=== PATIENT | male | born 1960 | race African-American/Black ===

== ENCOUNTER 2025-02-18 20:29 | Emergency (ER) | payer MEDICARE, MEDICAID, SELFPAY ==
--- OUTSIDE RECORDS SUMMARY | 2025-02-17 23:59 | XMS_ITS | Continuity of Care Document ---
Author Organization [facility] Address [address] [place] [id number] Care Team Providers Care Team Coordinator Name Role Phone Sy ROWLAND, Kristin Primary Care Physician Encounter [facility] [place] Date(s): 01/18/25 - 02/17/[address] [id number]- Encounter Type: Triage Allergies, Adverse Reactions, Alerts No Known Allergies Immunizations Given and Recorded Vaccine Date Status Refusal Reason [id number] 12y+ bivalent booster vax 04/08/23 Given influenza virus vaccine, inactivated 04/08/23 Give n influenza virus vaccine, inactivated 04/10/22 Give n influenza virus vaccine, inactivated 02/12/17 Fly rded influenza virus vaccine, inactivated 02/04/15 Give n influenza virus vaccine, inactivated 01/31/14 Fly rded influenza virus vaccine, inactivated 12/01/12 Fly rded influenza virus vaccine, inactivated 1 12/26/10 Gi jimy SARS-CoV-2 (COVID-19) mRNA BNT-162b2 vac 04/29/21 Given SARS-CoV-2 (COVID-19) mRNA BNT-162b2 vac 08/03/20 Given SARS-CoV-2 (COVID-19) mRNA BNT-162b2 vac 2 07/13/20 Given Influenza Vaccine (oldterm) 3 01/06/12 Given tetanus-diphtheria toxoids (Td) 4 05/20/09 Given 1Admin Note: vis 10/2010 2Result Comment: Steph Reaves 3Admin Note: VIS GIVEN 4Admin Note: vis 02/14/2008 Medications Aspirin Low Dose 81 mg oral delayed release tablet 1 tablet, By Mouth, Daily, # 90 tablet, 1 Refills, Maintenance, 12/01/24 4:56:00 PM EDT, [id number], 172.72, cm, 06/29/24 11:28:00 EDT, Height, 79.5, kg, 01/25/24 15:04:00 EDT, Dry Weight Start Date: 12/01/24 Status: Ordered Medication Dispense Status: Completed Quantity: 90.0 Unit: tablet Total Allowed Fills: 1 Fills Dispensed: 0 atorvastatin 80 mg oral tablet 1 tablet, By Mouth, Daily at bedtime, # 90 tablet, 3 Refills, 04/05/24 12:20:00 PM EST, [facility]/pharmacy #[id number], 172.72, cm, 01/29/24 4:24:00 EDT, Height, 79.5, kg, 01/25/24 15:04:00 EDT, Dry Weight Start Date: 04/05/24 Status: Ordered Medication Dispense Status: Completed Quantity: 90.0 Unit: tablet Total Allowed Fills: 4 Fills Dispensed: 0 BuPROPion (Eqv-Wellbutrin SR) 150 mg/12 hours oral tablet, extended release 1 tablet, By Mouth, 2 times a day, # 180 tablet, 1 Refills, Maintenance, 04/06/24 6:32:00 PM EST, [facility]/pharmacy #[id number], 172.72, cm, 01/29/24 4:24:00 EDT, Height, 79.5, kg, 01/25/24 15:04:00 EDT, Dry Weight Start Date: 04/06/24 Status: Ordered Medication Dispense Status: Completed Quantity: 180.0 Unit: tablet Total Allowed Fills: 2 Fills Dispensed: 0 capsaicin 0.025% topical cream 1 application, Topically, 3 times a day, PRN Pain , Moderate, # 60 Gm, 3 Refills, Maintenance, 04/08/23 9:13:00 AM EST, [facility] #[id number], Partial fill upon patient request if the prescription is for a schedule II opioid drug., 1 application Topically 3 times a day,PRN:Pain , Moderate, 173, cm, 04/08/23 8:27:00 EST, Height Start Date: 04/08/23 Status: Ordered Medication Dispense Status: Completed Quantity: 60.0 Unit: g Total Allowed Fills: 4 Fills Dispensed: 0 Indications: Unilateral primary osteoarthritis, unspecified hip; loratadine 10 mg oral tablet 10 mg, 1, tablet, By Mouth, Daily, Seasonal Allergies, # 30 tablet, Refills 1, Tot. Refills 1, Maintenance, 06/29/24 12:19:00 PM EDT, Route to Pharmacy Electronically, [facility]/pharmacy #[id number], Partial fill upon patient request if the prescription is for a schedule II opioid drug., 172.72, cm, 06/29/24 11:28:00 EDT, Height, 79.5, kg, 01/25/24 15:04:00 EDT, Dry Weight Start Date: 06/29/24 Status: Ordered Medication Dispense Status: Completed Quantity: 30.0 Unit: tablet Total Allowed Fills: 2 Fills Dispensed: 0 Methadone = 120 mg, Rx'd [facility], 0 Refills, Maintenance, 05/01/23 5:49:00 AM EST, Partial fill upon patientrequest if the prescription is for a schedule II opioid drug. Start Date: 05/01/23 Status: Ordered Medication Dispense Status: Completed Total Allowed Fills: 1 Fills Dispensed: 0 metoprolol 50 mg oral tablet, extended release 50 mg, 1, tablet, By Mouth, Daily, # 90 tablet, Refills 3, Tot. Refills 3, Maintenance, 04/05/24 12:20:00 PM EST, Route to Pharmacy Electronically, [facility]/pharmacy #[id number], pt needs labs, 172.72, cm, 01/29/24 4:24:00 EDT, Height, 79.5, kg, 01/25/24 15:04:00 EDT, Dry Weight Start Date: 04/05/24 Stop Date: 03/31/25 Status: Ordered Medication Dispense Status: Completed Quantity: 90.0 Unit: tablet Total Allowed Fills: 4 Fills Dispensed: 0 nitroglycerin 0.4 mg sublingual tablet 1 tablet = 0.4 mg, Sublingual, Every 5 minutes, PRN as needed for chest pain, not to exceed 3 doses/15 min--if pain persists, seek medical attention, # 25 tablet, 1 Refills, Maintenance, 06/29/24 12:16:00 PM EDT, Tablet, [facility] #[id number], Partial fill upon patient request if the prescription is fora schedule II opioid drug., 172.72, cm, 06/29/24 11:28:00 EDT, Height, 79.5, kg, 01/25/24 15:04:00 EDT, Dry Weight Start Date: 06/29/24 Status: Ordered Medication Dispense Status: Completed Quantity: 25.0 Unit: tablet Total Allowed Fills: 2 Fills Dispensed: 0 pregabalin 75 mg oral capsule 1 capsule = 75 mg, By Mouth, 2 times a day, # 60 capsule, 1 Refills, Maintenance, 06/29/24 12:25:00 PM EDT, Capsule, [id number], Partial fill upon patient request if the prescription is for a schedule II opioid drug., 172.72, cm, 06/29/24 11:28:00 EDT, Height, 79.5, kg, 01/25/24 15:04:00 EDT,Dry Weight Start Date: 06/29/24 Status: Ordered Medication Dispense Status: Completed Quantity: 60.0 Unit: capsule Total Allowed Fills: 2 Fills Dispensed: 0 Problem List Condition Confirmation Course Effective Dates Status H ealth Status Informant Coronary artery disease (NSTEMI & s/p SERVANDO, 2012) Confirmed Active Depression Confirmed Active Hearing impairment Confirmed Active Hypertension Confirmed Active Chronic pain of both knees Confirmed Active Opioid use disorder (On MAT w/Methadone, [facility]) Confirmed Active Severe osteoarthritis of right hip Confirmed Active [facility] Daryn Liban [phone] Confirmed Active Emphysema lung Confirmed Active Social History Social History Type Response Sexual Sexually involved in last 6 months: No. Smoking Status Current every day sm oker; Type: Cigarettes; Tobacco use times per day: 14 a day; entered on: 12/28/13 Sex Sex Representation Male (finding) Patient Care team information Care Team Personnel Name: Kathryn Leary Position: Reference Physician Member Role: Primary Care Nurse Address: [address] [place] [address] Telecom: Name: Mary Frederick RN Position: S RN Member Role: Primary Care Nurse Name: Radha Lazo RN Position: [facility] W/ Fritz Member Role: Primary Care Nurse Name: Jill Walters RN Position: S RN Member Role: Primary Care Nurse Name: Kristin Dan MD Position: [facility] Physician - Primary Care Member Role: PCP Address: [address] [place] [address] Telecom: Name: Loan Handy RN Position: [facility] RN Member Role: Primary Care Nurse Name: Blanca Moody RN Position: [facility] RN Member Role: Primary Care Nurse Name: Jill Morrissey RN Position: [facility] RN Member Role: Primary Care Nurse Care Team Related Persons Name: URBANO PEDROZA Name: ANAM ELLIS Name: SHAAN ELLIS Insurance Providers Guarantor name: [facility] Information #: 1 Payer: MEDICARE B Payer Identifier: NA Member Number: [id number] Group Number: Subscriber Identifier: NA Relationship to Subscriber: self Coverage Type: NA Coverage Verification Date: NA Telecom: NA Address: Health Plan Information #: 2 Payer: [employer] Payer Identifier: NA Member Number: [id number] Group Number: Subscriber Identifier: NA Relationship to Subscriber: self Coverage Type: MEDICAID Coverage Verification Date: NA Telecom: NA Address:
--- NOTE | ~2025-02-18 | XR_ITS ---
CLINICAL HISTORY: pain, swelling 3 view left foot Comparison: None provided Findings: Bones intact. No dislocations. No significant arthritic change or erosions. No ankle effusion. No radiopaque foreign body. IMPRESSION: 1. No acute findings. This document has been electronically signed by: Marge Hanson MD on 02/18/2025 21:39:58
--- NOTE | ~2025-02-18 | XR_ITS ---
CLINICAL HISTORY: pain, swelling 3 view left ankle Comparison: None provided Findings: No acute fractures. Ankle mortise intact. No significant arthritic change or erosions. No ankle effusion. Mild atherosclerotic vascular disease. IMPRESSION: 1. No acute findings. This document has been electronically signed by: Marge Hanson MD on 02/18/2025 21:38:35
--- NOTE | 2025-02-18 20:37 | ED.GENADULT ---
HPI - General Adult General Chief complaint: Skin/Abscess/Foreign Body Stated complaint: left foot infection Time Seen by Provider: 02/18/25 21:32 Source: patient, RN notes reviewed and old records reviewed Mode of arrival: ambulatory Limitations: no limitations History of Present Illness ED Provider: Nina HPI narrative: 64-year-old male with a past medical history significant for eczema presents for evaluation of left ankle pain and swelling. Patient reports redness, dry skin to the front in his left ankle on top of his foot for about 1 month. He reports that he has a eczema and was scratching himself with a cane when his symptoms initially started He reports that there is some clear drainage from the area. The patient states that he has been treating his wounds by jumping hydrogen peroxide every day for the last month He denies any fevers or chills No calf pain or swelling Related Data Previous Rx's ?Medication ?Instructions ?Recorded cephalexin 500 mg capsule 500 mg PO QID 10 days #40 caps 02/18/25 doxycycline hyclate 100 mg tablet 100 mg PO BID #20 tabs 02/18/25 Allergies Allergy/AdvReac Type Severity Reaction Status Date / Time No Known Allergies Allergy Verified 02/18/25 20:41 Review of Systems Constitutional: Constitutional: Denies body ache(s), Denies chills, Denies fever(s) and Denies frequent falls Eyes: Eyes: Denies blurry vision Integumentary/Breasts: Skin/Breast: Reports pruritus, Reports erythema, Reports rash and Reports wounds Neurologic: Denies frequent falls Psychiatric: Psychiatric: Denies anxiety PMFSH Social History Social History Advance Directives: No Advance Directives Information Provided: No Physical Exam ED Vital Signs: Vital Signs - 24 hr 02/18/25 20:39 Temperature 98.3 F Pulse Rate 103 H Respiratory Rate 20 Blood Pressure 158/96 H Pulse Oximetry 95 Oxygen Delivery Method Room Air BMI result Body Mass Index 26.6 Const General: healthy appearing, comfortable, no acute distress, alert and awake Nutritional Appearance: well nourished Orientation/consciousness: patient oriented x3 HENMT Head: Yes normocephalic and Yes atraumatic Eyes Eyelids: Yes eyelids normal Conjunctivae: conjunctivae normal Sclerae: sclerae normal Corneas: corneas normal Pupils: Equal, round and reactive pupils present EOM: EOMs intact bilaterally Neck Neck: Yes full ROM Resp Effort & Inspection: normal respiratory effort, able to speak in complete sentences and not labored Skin Other: Patient has a large area of dry, cracked skin to the top of his foot and anterior left lower sarkar. There is some erythema, no purulence but there is some serous drainage. No pitting edema General skin exam: elasticity normal Neuro General: patient oriented x3 Cranial nerves: Yes Equal, round and reactive pupils present and Yes Bilaterally intact EOM present Cognition (Neuro): normal cognition Extrem Other: Moving all extremities well without any obvious deformities Course Course Course Narrative: Rapid medical examination performed in triage by Martha Shelby PA-C: Patient is a 64 year old assigned male at presenting to the emergency department with left lower leg pain and redness. Patient states that for several weeks he has been scratching his left lower leg and he believes it may be infected now. Detailed physical exam and review of systems are deferred to the varsity baseball coach. Labs ordered. Patient placed back in the waiting room pending room availability and results. Medical Decision Making Medical Decision Making [facility] Narrative: 64-year-old male presents for evaluation of redness to his left foot and sarkar. This looks as if it started as a simple eczema. The patient has been scratching it and dosing it and hydrogen peroxide. He appears to have a mild cellulitis over the area now. He has no leukocytosis, he has a very slightly elevated ESR and CRP which could be due to his history of eczema or a mild cellulitis. We will treat with cephalexin and doxycycline for 10 days. I asked him to avoid using alcohol or hydrogen peroxide in the area. He may use a barrier cream such as Vaseline. Once he completes the antibiotic course that has seemed to follow up with his primary doctor as he may then pursue treatment for eczema Differential Diagnosis Differential Diagnoses: The differential diagnosis associated with the presentation includes Cellulitis Dermatitis Eczema Acute rash Lab Data [facility] Lab Attestation statement: I reviewed the patient's lab results. No leukocytosis or significant anemia. Normal platelet count. No electrolyte abnormalities warranting dimension. Slight elevation of ESR and CRP as discussed above. 02/18/25 21:07 02/18/25 21:07 Labs: Lab Results 02/18/25 Range/Units 21:07 WBC 6.1 (4.8-10.8) X10*3/uL RBC 4.47 L (4.60-5.80) X10*6/uL Hgb 13.8 L (14.0-18.0) g/dl Hct 41.9 L (42.0-52.0) % MCV 93.7 (80.0-98.0) fL MCH 30.9 (27.0-33.0) pg MCHC 32.9 (31.0-36.0) g/dl RDW 13.4 (11.0-16.0) % Plt Count 209 (160-400) X10*3/uL MPV 9.1 L (9.4-12.4) fL Immature Gran % (Auto) 0.3 (0.0-0.4) % Neut % (Auto) 70.1 (45-73) % Lymph % (Auto) 20.0 (20-40) % Sawyer % (Auto) 7.0 (2-11) % Eos % (Auto) 1.6 (0-4) % Baso % (Auto) 1.0 (0-2) % Lymph # (Auto) 1.2 (1.2-4.9) X10*3/uL Sawyer # (Auto) 0.4 (0.1-1.2) X10*3/uL Eos # (Auto) 0.1 (0.0-0.4) X10*3/uL Baso # (Auto) 0.1 (0.0-0.2) X10*3/uL Abs Immat Gran (auto) 0.02 (0.00-0.03) X10*3/uL Absolute Neuts (auto) 4.3 (2.0-8.3) x10*3/uL Absolute Nucleated RBC 0.000 (0.0-0.012) X10*3/uL Nucleated RBC % (auto) 0.0 (0.0-0.2) /100WBC ESR 25 H (0-15) MM/HR Sodium 144 (135-145) mmol/L Potassium 4.3 (3.3-5.1) mmol/L Chloride 108 (96-108) mmol/L Carbon Dioxide 25 (22-29) mmol/L Anion Gap 15 (12-20) BUN 13 (9-16) mg/dL Creatinine 1.48 H (0.5-1.4) mg/dL Estim Creat Clear Calc 47.5 Estimated GFR 48 Random Glucose 78 (60-115) mg/dL Calcium 9.3 (8.4-10.2) mg/dL Total Bilirubin 0.6 (0.0-1.0) mg/dL AST 36 (5-37) U/L ALT 8 (0-40) U/L Alkaline Phosphatase 153 H (39-117) U/L C-Reactive Protein 1.64 H (< or = 0.50) mg/dL Total Protein 7.7 (6.5-8.0) g/dL Albumin 4.0 (3.5-5.0) g/dL Radiology Impression Discussion of test interpretation with radiology: I have reviewed the radiologist's reading. Radiologist Impression: Findings: Bones intact. No dislocations. No significant arthritic change or erosions. No ankle effusion. No radiopaque foreign body. IMPRESSION: 1. No acute findings. This document has been electronically signed by: Marge Hanson MD on 02/18/2025 21:39:58 Findings: No acute fractures. Ankle mortise intact. No significant arthritic change or erosions. No ankle effusion. Mild atherosclerotic vascular disease. IMPRESSION: 1. No acute findings. This document has been electronically signed by: Marge Hanson MD on 02/18/2025 21:38:35 Discharge Plan Discharge Clinical Impression: Cellulitis Patient Disposition: Home, Self-Care Instructions: Cellulitis (ED) Additional Instructions: Your blood work today was reassuring. This looks like it started as eczema in you may now have a superimposed infection. Take both antibiotics as prescribed for 10 days. When she completely antibiotics, I recommend following up with your primary doctor as you may require additional eczema treatment Avoid using alcohol or hydrogen peroxide on the area as this will continue to dry out the skin Return for new or worsening symptoms Prescriptions: New cephalexin 500 mg capsule 500 mg PO QID 10 Days Qty: 40 0RF doxycycline hyclate 100 mg tablet 100 mg PO BID Qty: 20 0RF Print Language: Tamazight
[2025-02-18 20:39] VITALS: BP 158/96; PULSE 103; RESP 20; TEMP 36.8; O2SAT 95; BMI 26.6
[2025-02-18 21:12] LABS: Hematocrit 41.9 % (42.0-52.0); Hemoglobin 13.8 g/dl (14.0-18.0); Imm Gran Abs Auto 0.02 X10*3/uL (0.00-0.03); Imm Gran Pct Auto 0.3 % (0.0-0.4); Lymphocytes Absolute Auto 1.2 X10*3/uL (1.2-4.9); MANUAL DIFF FLAG NO; Mean Corpuscular HGB Conc 32.9 g/dl (31.0-36.0); Mean Corpuscular Hemoglobin 30.9 pg (27.0-33.0); Mean Corpuscular Volume 93.7 fL (80.0-98.0); NRBC Abs Auto 0.000 X10*3/uL (0.0-0.012); NRBC Pct Auto 0.0 /100WBC (0.0-0.2); Platelet Count 209 X10*3/uL (160-400); Red Blood Count 4.47 X10*6/uL (4.60-5.80); White Blood Count 6.1 X10*3/uL (4.8-10.8)
[2025-02-18 21:28] LABS: Alanine Aminotransferase 8 U/L (0-40); Albumin Level 4.0 g/dL (3.5-5.0); Alkaline Phosphatase 153 U/L (39-117); Anion Gap 15 (12-20); Aspartate Amino Transferase 36 U/L (5-37); Blood Urea Nitrogen 13 mg/dL (9-16); Calcium 9.3 mg/dL (8.4-10.2); Carbon Dioxide 25 mmol/L (22-29); Chloride 108 mmol/L (96-108); Creatinine Clr Calc Pharmacy 47.5; Estimated Glomerular Filt Rate 48; Potassium 4.3 mmol/L (3.3-5.1); Sodium 144 mmol/L (135-145); Total Protein 7.7 g/dL (6.5-8.0)
[2025-02-18 22:16] LABS: Erythrocyte Sedimentation Rate 25 MM/HR (0-15)
[2025-02-18 22:53] VITALS: BP 137/77; PULSE 76; RESP 16; TEMP 36.6; O2SAT 95
[2025-02-18 22:58] VITALS: BP 137/77; PULSE 76; RESP 16; TEMP 36.6; O2SAT 95
== END 2025-02-18 23:00 | disposition home or self-care (01) ==
PROVIDERS: Physician Assistant Medical; Emergency Provider Emergency Medicine
DX: L03.116 Cellulitis of left lower limb (principal); M25.572 Pain in left ankle and joints of left foot; Z79.899 Other long term (current) drug therapy
CPT/HCPCS: 36415; 73610; 73630; 80053; 85025; 85652; 86140; 99283

== ENCOUNTER → 2025-02-18 20:41 | Outpatient (BNV) | payer MEDICARE, MEDICAID, SELFPAY | PROVIDERS: Visit Provider Specialist | DX: R22.42 Localized swelling, mass and lump, left lower limb (principal) | CPT/HCPCS: 73610; 73630 ==

== ENCOUNTER 2025-03-15 18:37 | Emergency (ER) | payer MEDICARE, MEDICAID, SELFPAY ==
--- NOTE | ~2025-03-15 | CT_ITS ---
CLINICAL HISTORY: Wound; r o Deep Space Infection or Osteo --- Additional Notes or Special Instructions: Mid Tibia through Toes Please CT left ankle with contrast Comparison: CR - XR ANKLE LT MIN 3V - 03/15/25 19:48 EST Findings: Ankle predominant skin thickening and subcutaneous edema. No organized fluid collection. No soft tissue gas. Dorsalis pedis arterial atherosclerosis. No unexpected radiopaque foreign body. No focal cortical erosion or acute periosteal reaction to suggest acute osteomyelitis. No acute fracture. No dislocation. Joint spaces are maintained. IMPRESSION: Skin thickening and subcutaneous edema, which can be seen with cellulitis in the appropriate clinical setting. No abscess, soft tissue gas, or evidence of osteomyelitis. This document has been electronically signed by: Leo Bauman MD on 03/16/2025 02:51:08
--- NOTE | ~2025-03-15 | XR_ITS ---
CLINICAL HISTORY: pain, ?infection 3 view left ankle Comparison: CR - XR ANKLE LT MIN 3V - 02/18/25 20:56 EST Findings: No acute fractures or dislocations. No significant loss of joint space, osteophytes, or erosions. No ankle effusion. No radiopaque foreign body. IMPRESSION: 1. No acute findings. This document has been electronically signed by: Donte Cui MD on 03/15/2025 20:09:01
--- NOTE | ~2025-03-15 | XR_ITS ---
CLINICAL HISTORY: pain, ?infection 3 view left foot Comparison: CR - XR FOOT LT MIN 3V - 02/18/25 20:57 EST Findings: Bones intact. No dislocations. No significant arthritic change or erosions. No ankle effusion. No radiopaque foreign body. Small calcaneal spur. IMPRESSION: 1. No acute findings. This document has been electronically signed by: Donte Cui MD on 03/15/2025 20:02:59
[2025-03-15 19:17] VITALS: BP 137/83; PULSE 87; RESP 20; TEMP 36.8; O2SAT 97; BMI 27.8
--- NOTE | 2025-03-15 19:19 | ED_ITS ---
HPI - Skin/Abscess/Foreign Bdy General Chief complaint: Skin/Abscess/Foreign Body Stated complaint: left foot pain Time Seen by Provider: 03/15/25 22:44 Source: patient Mode of arrival: ambulatory Limitations: no limitations History of Present Illness ED Provider: Luis Antonio HOLBROOK HPI narrative: The patient is a 64-year-old male who presents to the Emergency Department for re-evaluation of a rash on the dorsum of his left foot that has been progressively worsening despite completing a course of oral Keflex and doxycycline prescribed during a prior ED visit in late January (02/18). The patient attributes the onset of the problem to scratching his foot with his cane which caused skin tearing, after which he repeatedly poured peroxide on the area. He has had no formal wound care at home. Patient states he saw his primary care physician earlier today for re-evaluation of the wound, advises this was his PCPs 1st time seeing the rash. Patient reports PCP instructed him to return to the hospital for IV antibiotics. Patient denies associated fever/chills, nausea, vomiting, or other systemic complaint. Related Data Previous Rx's ?Medication ?Instructions ?Recorded cephalexin 500 mg capsule 500 mg PO QID 10 days #40 ca ps 02/18/25 doxycycline hyclate 100 mg tablet 100 mg PO BID #20 ta bs 02/18/25 clotrimazole 1 % topical cream 1 appl topical BID 4 we eks #30 03/16/25 grams Allergies Allergy/AdvReac Type Severity Reaction Status Date / Time No Known Allergies Allergy Verified 03/15/25 19:21 Review of Systems 2 Review of Systems: Yes all other systems are reviewed and are negative PMFSH Social History Social History Advance Directives: No Advance Directives Information Provided: Yes Physical Exam 2 Vital Signs: Vital Signs: Last Vital Signs Temp 98.2 F 03/16/25 02:06 Pulse 68 03/16/25 02:06 Resp 18 03/16/25 02:06 BP 168/84 H 03/16/25 02:06 Pulse Ox 97 03/16/25 02:06 O2 Del Method Room Air 03/16/25 02:06 BMI result Body Mass Index 27.8 CONSTITUTIONAL: The patient appears non-toxic, well nourished and in no acute distress. Vital signs as documented. HEAD: Atraumatic, normocephalic. EYES: EOMs grossly intact, pupils equal, conjunctiva clear, no exudate. ENT: Nares patent, no discharge. Airway patent, no audible stridor, visible mucosa is pink and moist without noted lesions. NECK: trachea is midline, no obvious masses or gross abnormalities. CHEST: Symmetric movement, normal appearance. LUNGS: Non-labored work of breathing. CARDIAC: No evidence of hypoperfusion. ABDOMEN: Nondistended, no obvious injury. : Deferred. EXTREMITIES: Moves all extremities spontaneously without reported pain. No obvious injury or deformity noted. NEURO: Alert and oriented x3, CN II-XII appear grossly intact. Cerebellar Functioning grossly intact. Speech clear and appropriate. SKIN: See picture, otherwise warm, dry, color appropriate. No other rashes or lesions noted. Course Course Course Narrative: This is an RME: Additional HPI, ROS, PE not included below will be deferred to primary provider. RME assessment and note performed by: Shanta Loyola PA-C This is a [id number], with a hx of HLD, cardiac stent, and HTN, who presents to the ER with complaints of left foot pain/redness. Pt is concerned for a foot infection, was seen here on 02/18 for same - d/c on doxy/cephalexin. Sxs only worsening - was seen at PCP was told to come in for IV abx. Unable to visualize in triage. Plan: Labs, xrays, further ER eval needed Medications Administered Discontinued Medications Generic Name Dose Route Start Last Admin Trade Name Freq PRN Reason Stop Dose Admin Clotrimazole 1 appl 03/15/25 23:56 03/16/25 01:28 Clotrimazole 1 % Cream 15 Gm Tube TOPICAL 03/15/25 23:57 Not Given ONCE ONE Protocol Sodium Chloride 1,000 mls @ 999 mls/hr 03/15/25 23:45 03/16/25 01:38 Ns IV 03/16/25 00:45 999 mls/hr .Q1H1M PEGGY Administration Iohexol 85 ml 03/16/25 01:48 03/16/25 01:49 Iohexol 350 Mg/Ml 100 Ml Infus..Btl IV 03/16/25 01:49 85 ml ONCE ONE Administration Medical Decision Making Medical Decision Making MDM Narrative: 11:24 PM 03/15/2025 (Santiago HOLBROOK): The patient is a 64-year-old male who presents to the Emergency Department for re-evaluation of a rash on the dorsum of his left foot that has been progressively worsening despite completing a course of oral Keflex and doxycycline prescribed during a prior ED visit in late January (02/18). The patient attributes the onset of the problem to scratching his foot with his cane which caused skin tearing, after which he repeatedly poured peroxide on the area. He has had no formal wound care at home. Patient states he saw his primary care physician earlier today for re-evaluation of the wound, advises this was his PCPs 1st time seeing the rash. Patient reports PCP instructed him to return to the hospital for IV antibiotics. Patient denies associated fever/chills, nausea, vomiting, or other systemic complaint. The patient's exam reveals highly keratinized skin with significant cracking. The rash appears more consistent with an initial fungal infection with subsequent overlying cellulitis. The patient's laboratory evaluation is reassuring, no leukocytosis, anemia, electrolyte abnormality, or significant change in renal function. Lactic acid normal at 1.9. The patient's CRP is elevated at 1.21, ESR 44. Foot and ankle x-ray show no abnormalities. The patient's vital signs are reassuring, no tachycardia or fever. The patient's presentation is more consistent with fungal nonhealing rash, as opposed to failure of outpatient antibiotics. We will treat with topical clotrimazole, however due to the patient's elevated ESR and CRP, we will obtain CT of the lower extremity to evaluate for underlying cellulitis. If CT shows no evidence of underlying cellulitis the patient will be held for case management consultation to establish in home [facility] wound care. 3:32 AM 03/16/2025 (Santiago HOLBROOK): Patient's CT has resulted and shows predominant skin thickening with subcutaneous edema but without organized fluid collection soft tissue gas, or foreign body, there was also no cortical erosion or other periosteal reaction to suggest acute osteomyelitis. At this time there does not appear to be any reason to admit the patient or initiate IV antibiotics. Patient's case was discussed with attending physician Dr. Glover who agrees the rash appears chronic and does not require admission or continued observation. The patient will be discharged with clotrimazole cream, and instructions to follow up with PCP for consideration of wound care referral for scraping/additional management. Lab Data 03/15/25 20:49 03/15/25 20:50 Labs: Lab Results 03/15/25 03/15/25 Range/Units 20:49 20:50 WBC 7.1 (4.8-10.8) X10*3/uL RBC 4.67 (4.60-5.80) X10*6/uL Hgb 14.7 (14.0-18.0) g/dl Hct 45.1 (42.0-52.0) % MCV 96.6 (80.0-98.0) fL MCH 31.5 (27.0-33.0) pg MCHC 32.6 (31.0-36.0) g/dl RDW 14.2 (11.0-16.0) % Plt Count 200 (160-400) X10*3/uL MPV 9.4 (9.4-12.4) fL Immature Gran % (Auto) 0.4 (0.0-0.4) % Neut % (Auto) 56.2 (45-73) % Lymph % (Auto) 26.1 (20-40) % Vernon % (Auto) 10.0 (2-11) % Eos % (Auto) 6.7 H (0-4) % Baso % (Auto) 0.6 (0-2) % Lymph # (Auto) 1.9 (1.2-4.9) X10*3/uL Vernon # (Auto) 0.7 (0.1-1.2) X10*3/uL Eos # (Auto) 0.5 H (0.0-0.4) X10*3/uL Baso # (Auto) 0.0 (0.0-0.2) X10*3/uL Abs Immat Gran (auto) 0.03 (0.00-0.03) X10*3/uL Absolute Neuts (auto) 4.0 (2.0-8.3) x10*3/uL Absolute Nucleated RBC 0.000 (0.0-0.012) X10*3/uL Nucleated RBC % (auto) 0.0 (0.0-0.2) /100WBC ESR 44 H (1-20) MM/HR Sodium 138 (135-145) mmol/L Potassium 4.0 (3.3-5.1) mmol/L Chloride 102 (96-108) mmol/L Carbon Dioxide 27 (22-29) mmol/L Anion Gap 13 (12-20) BUN 13 (9-16) mg/dL Creatinine 1.66 H (0.5-1.4) mg/dL Estim Creat Clear Calc 45.9 Estimated GFR 42 Random Glucose 66 (60-115) mg/dL Lactic Acid 1.9 (0.5-2.0) mmol/L Calcium 9.1 (8.4-10.2) mg/dL Magnesium 1.9 (1.6-2.6) mg/dL Total Bilirubin 0.7 (0.0-1.0) mg/dL Direct Bilirubin 0.3 (0.0-0.5) mg/dL AST 39 H (5-37) U/L ALT 22 (0-40) U/L Alkaline Phosphatase 159 H (39-117) U/L C-Reactive Protein 1.21 H (< or = 0.50) mg/dL Total Protein 8.0 (6.5-8.0) g/dL Albumin 4.2 (3.5-5.0) g/dL Radiology Impression Discussion of test interpretation with radiology: I have reviewed the radiologist's reading. Radiologist Impression: CT left ankle with contrast Comparison: CR - XR ANKLE LT MIN 3V - 03/15/25 19:48 EST Findings: Ankle predominant skin thickening and subcutaneous edema. No organized fluid collection. No soft tissue gas. Dorsalis pedis arterial atherosclerosis. No unexpected radiopaque foreign body. No focal cortical erosion or acute periosteal reaction to suggest acute osteomyelitis. No acute fracture. No dislocation. Joint spaces are maintained. IMPRESSION: Skin thickening and subcutaneous edema, which can be seen with cellulitis in the appropriate clinical setting. No abscess, soft tissue gas, or evidence of osteomyelitis. This document has been electronically signed by: Leo Bauman MD on 03/16/2025 02:51:08 3 view left ankle Comparison: CR - XR ANKLE LT MIN 3V - 02/18/25 20:56 EST Findings: No acute fractures or dislocations. No significant loss of joint space, osteophytes, or erosions. No ankle effusion. No radiopaque foreign body. IMPRESSION: 1. No acute findings. This document has been electronically signed by: Donte Cui MD on 03/15/2025 20:09:01 3 view left foot Comparison: CR - XR FOOT LT MIN 3V - 02/18/25 20:57 EST Findings: Bones intact. No dislocations. No significant arthritic change or erosions. No ankle effusion. No radiopaque foreign body. Small calcaneal spur. IMPRESSION: 1. No acute findings. This document has been electronically signed by: Donte Cui MD on 03/15/2025 20:02:59 Discharge Plan Discharge Clinical Impression: Hyperkeratosis Eczema Qualifiers: Eczema type: other Qualified Code(s): L30.8 - Other specified dermatitis Patient Disposition: Home, Self-Care Instructions: Acute Rash (ED), Dyshidrotic Eczema (ED), Dermatitis (ED) Additional Instructions: Thank you for choosing [facility] Emergency Department for your care today. Thankfully your laboratory evaluation, x-rays, CT, and exam today are reassuring. This appears consistent with a chronic rash, is no evidence of ongoing cellulitis. Your rash appears consistent with hyperkeratotic eczema with a superimposed fungal infection. At this time there is no indication for IV antibiotics, admission to the hospital, or continued ED observation, and it is safe to discharge you home. Please apply clotrimazole cream twice daily as directed to moisten and potentially reduce your rash. Please stay well hydrated and get plenty of rest. Please follow up with your primary care physician for re-evaluation, referral to Wound Care and/or dermatology, additional management of your symptoms, and continued preventative care. If you do not have a primary care physician, please call the [facility] at [phone] to establish a new primary care physician. While waiting to establish your new primary care physician, you can call our [facility] at [phone] for non-emergency needs. Please return to the emergency department if you develop a severe or sudden change in your symptoms, a fever over 100.4 that does not improve with Tylenol or Ibuprofen, recurrent vomiting, or any other new or worsening symptoms or concerns. Prescriptions: New clotrimazole 1 % cream 1 appl topical BID 28 Days Qty: 30 0RF No Action cephalexin 500 mg capsule 500 mg PO QID 10 Days Qty: 40 0RF doxycycline hyclate 100 mg tablet 100 mg PO BID Qty: 20 0RF Print Language: Portuguese
[2025-03-15 20:55] LABS: MANUAL DIFF FLAG NO
[2025-03-15 20:58] LABS: Hematocrit 45.1 % (42.0-52.0); Hemoglobin 14.7 g/dl (14.0-18.0); Imm Gran Abs Auto 0.03 X10*3/uL (0.00-0.03); Imm Gran Pct Auto 0.4 % (0.0-0.4); Lymphocytes Absolute Auto 1.9 X10*3/uL (1.2-4.9); Mean Corpuscular HGB Conc 32.6 g/dl (31.0-36.0); Mean Corpuscular Hemoglobin 31.5 pg (27.0-33.0); Mean Corpuscular Volume 96.6 fL (80.0-98.0); NRBC Abs Auto 0.000 X10*3/uL (0.0-0.012); NRBC Pct Auto 0.0 /100WBC (0.0-0.2); Platelet Count 200 X10*3/uL (160-400); Red Blood Count 4.67 X10*6/uL (4.60-5.80); White Blood Count 7.1 X10*3/uL (4.8-10.8)
[2025-03-15 21:11] LABS: Alanine Aminotransferase 22 U/L (0-40); Albumin Level 4.2 g/dL (3.5-5.0); Alkaline Phosphatase 159 U/L (39-117); Anion Gap 13 (12-20); Aspartate Amino Transferase 39 U/L (5-37); Blood Urea Nitrogen 13 mg/dL (9-16); Calcium 9.1 mg/dL (8.4-10.2); Carbon Dioxide 27 mmol/L (22-29); Chloride 102 mmol/L (96-108); Creatinine Clr Calc Pharmacy 45.9; Estimated Glomerular Filt Rate 42; Magnesium 1.9 mg/dL (1.6-2.6); Potassium 4.0 mmol/L (3.3-5.1); Sodium 138 mmol/L (135-145); Total Protein 8.0 g/dL (6.5-8.0)
[2025-03-16] MEDS: iohexoL 350 MG/ML 100 ML INFUS..BTL 85 ML IV (01:49)
[2025-03-16 02:06] VITALS: BP 168/84; PULSE 68; RESP 18; TEMP 36.8; O2SAT 97
[2025-03-16 04:00] VITALS: BP 175/93; PULSE 69; RESP 14; TEMP 36.1; O2SAT 97
== END 2025-03-16 04:20 | disposition home or self-care (01) ==
PROVIDERS: Physician Assistant Medical; Emergency Provider Emergency Medicine
DX: L85.9 Epidermal thickening, unspecified (principal); L30.8 Other specified dermatitis
CPT/HCPCS: 36415; 73610; 73630; 73701; 80048; 80076; 83605; 83735; 85025; 85652; 86140; 87040; 96360; 96361; 99283; 99284; Q9967

== ENCOUNTER → 2025-03-15 19:22 | Outpatient (BNV) | payer MEDICARE, MEDICAID, SELFPAY | PROVIDERS: Visit Provider Radiology Diagnostic Radiology | DX: M25.572 Pain in left ankle and joints of left foot (principal) | CPT/HCPCS: 73610; 73630 ==

== ENCOUNTER → 2025-03-16 00:04 | Outpatient (BNV) | payer MEDICARE, MEDICAID, SELFPAY | PROVIDERS: Emergency Provider Emergency Medicine; Visit Provider Student in an Organized Health Care Education/Training Program | DX: R60.0 Localized edema (principal) | CPT/HCPCS: 73701 ==